=== PATIENT | male | born 1950 | race Caucasian/White ===

== ENCOUNTER 2018-01-29 13:50 | Outpatient (CLI) | payer MEDICARE ==
[2018-01-29 14:27] LABS: #Basophils 0.1 thou/uL (0.0-0.2); #Eosinphils 0.1 thou/uL (0.0-0.7); #Lymphocytes 1.9 thou/uL (1.20-3.40); #Monocytes 0.5 thou/uL (0.11-0.59); #Neutrophils 6.7 thou/uL (1.40-6.50); %Basophils 0.6 % (0.0-1.0); %Eosinophils 1.6 % (0.0-10.0); %Monocytes 5.3 % (0.0-10.0); %Neutrophils 72.6 % (42.0-75.0); Hemoglobin 16.4 g/dL (14.0-18.0); Mean Corpuscular HGB CONC 35.7 g/dL (32.0-36.0); Mean Corpuscular Hemoglobin 31.6 pg (27.0-31.0); Mean Corpuscular Volume 88.3 fL (78.0-98.0); Mean Platelet Volume 6.3 fL (7.4-10.4); Platelet Count 212 thou/uL (130-400); RBC Distribution Width 14.4 % (11.5-14.5); White Blood Cell (WBC) Count 9.3 thou/uL (4.8-10.8)
[2018-01-29 14:46] LABS: ALT (SGPT) 24 U/L (8-55); AST (SGOT) 19 U/L (5-34); Albumin 4.6 g/dL (3.4-4.8); Alkaline Phosphatase 109 U/L (40-150); Anion Gap 13 mmol/L (10-20); BUN (Urea Nitrogen) 23 mg/dL (8.4-25.7); Bilirubin, Total 1.1 mg/dL (0.2-1.2); Calc. Creatinine Clearance 0 mL/min (70-130); Calcium 9.6 mg/dL (7.8-10.44); Carbon Dioxide 20 mmol/L (23-31); Chloride 107 mmol/L (98-107); Estimated GFR-MDRD 63; Globulin 2.9 g/dL (2.4-3.5); Glucose 195 mg/dL (80-115); Potassium 4.1 mmol/L (3.5-5.1); Protein, Total 7.5 g/dL (5.8-8.1); Sodium 136 mmol/L (136-145)
--- NOTE | 2018-01-29 17:31 | EKG ---
Test Reason : Blood Pressure : / mmHG Vent. Rate : 060 BPM Atrial Rate : 060 BPM P-R Int : 162 ms QRS Dur : 080 ms QT Int : 384 ms P-R-T Axes : 075 085 056 degrees QTc Int : 384 ms Normal sinus rhythm Normal ECG No previous ECGs available Confirmed by TOMÁS ROLLINS ([id number]) on 01/29/2018 5:31:25 PM Referred By: LALO Confirmed By:TOMÁS ROLLINS
== END 2018-01-29 13:51 | disposition home or self-care (01) ==
LOC: LABBT 13:50
PROVIDERS: ATTEND Surgery
DX: Z01.818 Encounter for other preprocedural examination (principal); K40.91 Unilateral inguinal hernia, without obstruction or gangrene, recurrent
CPT/HCPCS: 80053; 85025; 93005; 93010

== ENCOUNTER 2018-02-07 06:52 | Day surgery (SDC) | payer MEDICARE ==
[2018-01-29 14:16] VITALS: BMI 25.9
[2018-02-07] MEDS ORDERED: CEFAZOLIN/Water 2 GM/20 ML SYRINGE ONE (09:45)
[2018-02-07] MEDS ORDERED: Lidocaine 2% Jelly 5 ML TUBE ONE (10:01)
[2018-02-07] MEDS ORDERED: Fentanyl 250 MCG/5 ML VIAL ONE (10:01)
[2018-02-07] MEDS ORDERED: Bupivacaine/Epinephrine 0.25% 30 ML VIAL ONE (10:02)
[2018-02-07] MEDS ORDERED: SUGAMMADEX SODIUM 200 MG/2 ML VIAL ONE (11:33)
[2018-02-07] MEDS ORDERED: Fentanyl 100 MCG/2 ML VIAL ONE (11:50)
--- NOTE | 2018-02-07 12:52 | OP ---
PREOPERATIVE DIAGNOSIS: Recurrent right inguinal hernia. SURGEON: Christos Thorpe M.D. PROCEDURE PERFORMED: Laparoscopic robotic assisted recurrent right inguinal hernia repair with mesh. INDICATIONS: This is a 67-year-old male who has had a previous right inguinal hernia repair with rec urrent right inguinal hernia causing pain. FINDINGS: A large indirect inguinal hernia. PROCEDURE IN DETAIL: After informed consent was obtained, the patient was taken to the operating [facility]inda m and given general endotracheal anesthesia. He was placed in supine position. The abdomen was prep ped and draped in usual fashion. Local anesthesia infiltrated subcutaneously and deep. A supraumbil ical incision was performed. The subcu divided sharply. The fascia grasped and an incision made in the fascia. Digital palpation revealed no local adhesions. A 10/12 mm trocar inserted. Pneumoperit oneum was created to a pressure of 15 mmHg. Under direct vision using a 30-degree scope, two 8 mm po rts were placed just lateral to the rectus at the level of the first incision. The robot was docked and I went to the console. The peritoneum was opened from median umbilical ligament laterally. A hampton bperitoneal plane was then developed using blunt and sharp dissection. The pubic tubercle was expose d, the hernia sac was found. It was dissected out and reduced. A large contour mesh was inserted in tra-abdominally and placed within the pocket, sutured the pubic tubercle with a 2-0 silk suture and t hen superiorly just medial to the epigastric vessels with a 2-0 silk suture. Then the hemostasis was assured. The peritoneum closed laterally to medially with a running 3-0 V-Loc suture. Hemostasis w as assured. All needles were removed. Trocars and retractors removed. The fascia closed with inter rupted 0 Vicryl suture. Skin closed with interrupted 4-0 Rapide. Dermabond applied. The patient to lerated the procedure well and was transferred to recovery in good condition. Sponge and needle coun t verified correct x2.
[2018-02-07] MEDS ORDERED: Dexamethasone 20 MG/5 ML VIAL ONE (15:01)
[2018-02-07] MEDS ORDERED: Ondansetron HCl/PF 4 MG/2 ML Vial ONE (15:01)
[2018-02-07] MEDS ORDERED: Glycopyrrolate 0.2 MG/ML 5 ML SYRINGE ONE (15:01)
[2018-02-07] MEDS ORDERED: ePHEDrine/0.9% NaCl/PF SYRINGE 50 mg/10 ml ONE (15:01)
[2018-02-07] MEDS ORDERED: Lidocaine 1% PF 5 ML VIAL ONE (15:01)
[2018-02-07] MEDS ORDERED: PHENYLEPHRINE-NS 100 MCG/ML 10 ML SYRINGE ONE (15:01)
[2018-02-07] MEDS ORDERED: PROPOFOL 200 MG/20 ML VIAL ONE (15:01)
== END 2018-02-07 13:14 | disposition home or self-care (01) ==
LOC: SDC 06:52
PROVIDERS: ATTEND Surgery
PROC: 0YU54JZ Supplement Right Inguinal Region with Synthetic Substitute, Percutaneous Endoscopic Approach (ICD-10-PCS; principal; 2018-02-07)
DX: K40.91 Unilateral inguinal hernia, without obstruction or gangrene, recurrent (principal); Z79.899 Other long term (current) drug therapy; Z98.890 Other specified postprocedural states
CPT/HCPCS: 49651; 96374; C1781; J1100; J2001; J2405; J2704; J3010